=== PATIENT | female | born 1980 | race Asian ===

== ENCOUNTER 2017-10-07 11:56 | Emergency (ER) | payer MEDICAID ==
[~2017-10-07] VITALS: Ht 167.6 cm; Wt 65.3 kg
[2017-10-07 11:56] VITALS: Ht 167.6 cm; Wt 65.3 kg
[2017-10-07 14:42] VITALS: BP 99/68
== END 2017-10-07 14:42 | disposition home or self-care (01) ==
LOC: ED 11:56
DX: R55 Syncope and collapse (principal)